=== PATIENT | female | born 1960 | race Caucasian/White ===

== ENCOUNTER → 2021-02-23 | Outpatient (CLI) | payer OTHER ==
--- NOTE | 2021-02-24 07:33 | RAD ---
Exam Date: 02/23/2021 1:37 PM XR KNEE_LT 1-2 VIEWS Indication: Reason: BACK AND KNEE PAIN / Spl. Instructions: / History: FINDINGS/ IMPRESSION: No acute fracture or dislocation. Alignment and joint spaces are maintained. The soft tissues are w ithin normal limits. Electronically signed by: Riky Fitch MD (02/24/2021 7:31 AM) [id number]
--- NOTE | 2021-02-24 07:34 | RAD ---
Exam Date: 02/23/2021 1:37 PM XR LUMBAR SPINE 2-3V Indication: Reason: BACK PAIN / Spl. Instructions: / History: FINDINGS/ IMPRESSION: There is mild dextroconvex curvature of the lumbar spine. There is grade 1 anterolisthesis of L3 on L 4. The vertebral body heights are maintained without evidence of compression fracture. Mild disc sp fatuma narrowing is seen at multiple levels with small osteophytes and mild facet joint arthropathy. T he SI joints appear normal. The visualized soft tissues are within normal limits. Electronically signed by: Riky Fitch MD (02/24/2021 7:32 AM) [id number]
== END ==
LOC: RAD 13:22
PROVIDERS: ATTEND Surgery
DX: M47.816 Spondylosis without myelopathy or radiculopathy, lumbar region (principal); M25.78 Osteophyte, vertebrae; M48.061 Spinal stenosis, lumbar region without neurogenic claudication; M25.562 Pain in left knee
CPT/HCPCS: 72100; 73560